=== PATIENT | male | born 1985 | race Hispanic/Latino ===

== ENCOUNTER 2021-11-17 06:36 | Inpatient (IN) | payer OTHER, SELFPAY ==
[2021-11-17] MEDS ORDERED: Boostrix 0.5 ML (Tdap) VIAL (>/=7 yrs of age) ONE (06:58)
[2021-11-17] MEDS ORDERED: Fentanyl 100 MCG/2 ML VIAL ONE (06:58)
[2021-11-17 07:30] LABS: Hemoglobin 14.8 g/dL (14.0-18.0); Mean Corpuscular HGB CONC 33.8 g/dL (32.0-36.0); Mean Corpuscular Hemoglobin 32.7 pg (27.0-31.0); Mean Corpuscular Volume 96.9 fL (78.0-98.0); Mean Platelet Volume 8.1 fL (7.4-10.4); Platelet Count 251 thou/uL (130-400); RBC Distribution Width 11.6 % (11.5-14.5); Red Blood Cell (RBC) Count 4.53 mill/uL (4.70-6.10); White Blood Cell (WBC) Count 19.8 thou/uL (4.8-10.8)
[2021-11-17 07:48] LABS: ALT (SGPT) 745 U/L (8-55); AST (SGOT) 726 U/L (5-34); Albumin 4.1 g/dL (3.5-5.0); Alkaline Phosphatase 112 U/L (40-110); Anion Gap 21 mmol/L (10-20); BUN (Urea Nitrogen) 13 mg/dL (8.9-20.6); Bilirubin, Total 0.6 mg/dL (0.2-1.2); Calc. Creatinine Clearance 0 mL/min (70-130); Calcium 8.8 mg/dL (7.8-10.44); Carbon Dioxide 20 mmol/L (22-29); Chloride 102 mmol/L (98-107); Estimated GFR 71; Globulin 3.1 g/dL (2.4-3.5); Glucose 179 mg/dL (70-105); Lipase 28 U/L (8-78); Protein, Total 7.2 g/dL (6.0-8.3); Sodium 139 mmol/L (136-145)
[2021-11-17 08:14] LABS: Band 7 % (5-11); Eosinophils 1 % (0-10); Lymphocytes 33 % (21-51); MDiff Complete? YES; Monocytes 5 % (0-10); Neutrophil 54 % (42-75); Platelet Morphology Comment Appears Adequate; RBC Morphology Normal
[2021-11-17] MEDS ORDERED: Ondansetron PF 4 MG/2 ML Vial ONE (08:49)
[2021-11-17] MEDS ORDERED: Morphine 4 MG/ML VIAL ONE (08:49)
[2021-11-17] MEDS ORDERED: Acetaminophen 500 MG TAB ONE (09:45)
[2021-11-17] MEDS ORDERED: traMADol HCl 50 MG TAB ONE (09:45)
[2021-11-17 10:29] LABS: Bacteria/HPF 2+ HPF (None Seen); Bilirubin Negative (Negative); Blood, Urine 3+ (Negative); Clarity Clear (Clear); Glucose, Urine (Dipstick) 100 mg/dL (Negative); Ketone, Urine Negative (Negative); Leukocyte Negative Leu/uL (Negative); Nitrite Negative (Negative); Protein, Urine (Dipstick) 300 mg/dL (Neg-Trace); Specific Gravity, Urine 1.049 (1.002-1.036); Squamous Epithelial 0-3 HPF (0-3); Urobilinogen Normal mg/dL (Less than 2); pH, Urine 7.5 (5.0-9.0)
[2021-11-17] MEDS ORDERED: Dextrose 5% in Water 1,000 ML IV PRN (11:38)
[2021-11-17] MEDS ORDERED: Ondansetron ODT 4 MG TAB PO PRN (11:38)
[2021-11-17] MEDS ORDERED: hydrALAZINE 20 MG/ML VIAL SLOW IVP PRN (11:38)
[2021-11-17] MEDS ORDERED: Dextrose 50% Abboject 50 ML SYRINGE SLOW IVP PRN (11:38)
[2021-11-17] MEDS ORDERED: Morphine 2 MG/ML VIAL SLOW IVP PRN (11:38)
[2021-11-17] MEDS ORDERED: TETANUS AND DIPHTHERIA TOX/PF 0.5 ML DISP.SYRIN IM ONE (11:38)
[2021-11-17] MEDS ORDERED: Ondansetron PF 4 MG/2 ML Vial IVP PRN (11:38)
[2021-11-17] MEDS ORDERED: Sodium Chloride 0.9% 1,000 ML IV SCH (11:45)
[2021-11-17 12:04] LABS: CK (CPK) 400 U/L (30-200); Magnesium 1.9 mg/dL (1.6-2.6); Phosphorus 5.2 mg/dL (2.3-4.7)
[2021-11-17] MEDS: Gabapentin 300 MG CAP PO SCH ×2 (14:14→21:51)
[2021-11-17] MEDS: Morphine 4 MG/ML VIAL SLOW IVP PRN ×2 (14:15→17:38)
[2021-11-17] MEDS: Acetaminophen 500 MG TAB PO SCH ×2 (14:16→21:53)
[2021-11-17] MEDS: traMADol HCl 50 MG TAB PO SCH ×2 (15:46→21:52)
[2021-11-17] MEDS ORDERED: Iopamidol-370 76% 500 ML 1 ML ONE (15:52)
[2021-11-17 18:22] VITALS: BMI 31.9
[2021-11-17] MEDS: Senokot S 8.6-50 MG TAB PO SCH (21:51)
[2021-11-17] MEDS: Bacitracin 1 PK TOP SCH (21:51)
[2021-11-17] MEDS: Famotidine 20 MG TAB PO SCH (21:52)
[2021-11-18] MEDS: Acetaminophen 500 MG TAB PO SCH ×2 (02:13→05:45)
[2021-11-18 05:37] LABS: #Eosinphils 0.1 thou/uL (0.0-0.7); #Monocytes 1.3 thou/uL (0.11-0.59); #Neutrophils 8.3 thou/uL (1.40-6.50); %Basophils 0.2 % (0.0-1.0); %Eosinophils 0.7 % (0.0-10.0); %Lymphocytes 16.9 % (21.0-51.0); %Neutrophils 71.2 % (42.0-75.0); Hemoglobin 12.8 g/dL (14.0-18.0); Mean Corpuscular HGB CONC 32.7 g/dL (32.0-36.0); Mean Corpuscular Hemoglobin 32.1 pg (27.0-31.0); Mean Corpuscular Volume 98.3 fL (78.0-98.0); Mean Platelet Volume 7.3 fL (7.4-10.4); Platelet Count 169 thou/uL (130-400); RBC Distribution Width 11.7 % (11.5-14.5); Red Blood Cell (RBC) Count 3.99 mill/uL (4.70-6.10); White Blood Cell (WBC) Count 11.7 thou/uL (4.8-10.8)
[2021-11-18] MEDS: traMADol HCl 50 MG TAB PO SCH ×4 (05:44→21:19)
[2021-11-18 06:03] LABS: Anion Gap 13 mmol/L (10-20); BUN (Urea Nitrogen) 12 mg/dL (8.9-20.6); CK (CPK) 3335 U/L (30-200); Calc. Creatinine Clearance 159 mL/min (70-130); Calcium 8.6 mg/dL (7.8-10.44); Carbon Dioxide 27 mmol/L (22-29); Chloride 101 mmol/L (98-107); Estimated GFR 114; Glucose 120 mg/dL (70-105); Magnesium 1.8 mg/dL (1.6-2.6); Potassium 4.9 mmol/L (3.5-5.1); Sodium 136 mmol/L (136-145)
[2021-11-18] MEDS ORDERED: Ibuprofen 200 MG TAB PO SCH (08:30)
[2021-11-18] MEDS: Famotidine 20 MG TAB PO SCH ×2 (09:04→21:13)
[2021-11-18] MEDS: Senokot S 8.6-50 MG TAB PO SCH ×2 (09:04→21:14)
[2021-11-18] MEDS: Enoxaparin Sodium 30 MG/0.3 ML SYRINGE SC SCH ×2 (09:08→21:32)
[2021-11-18] MEDS: Gabapentin 300 MG CAP PO SCH ×3 (09:08→21:13)
[2021-11-18] MEDS: Polyethylene Glycol 3350 17 GM Packet PO SCH (09:09)
[2021-11-18] MEDS: Silver Sulfadiazine 50 GM TUBE TOP SCH ×3 (14:51→21:15)
[2021-11-18] MEDS: Bacitracin 1 PK TOP SCH ×2 (14:52→21:15)
[2021-11-18] MEDS: Ketorolac Tromethamine 30 MG/ML VIAL IVP SCH ×2 (14:54→19:38)
[2021-11-18] MEDS: Sodium Chloride 0.9% 1,000 ML IV SCH ×3 (14:59→23:25)
[2021-11-18] MEDS ORDERED: Scopolamine 1.5 mg/72 hour Patch TD SCH (15:00)
[2021-11-19] MEDS: Ketorolac Tromethamine 30 MG/ML VIAL IVP SCH ×4 (00:16→17:33)
[2021-11-19] MEDS: traMADol HCl 50 MG TAB PO SCH ×4 (04:16→23:03)
[2021-11-19 05:35] LABS: #Eosinphils 0.2 thou/uL (0.0-0.7); #Lymphocytes 1.6 thou/uL (1.20-3.40); #Neutrophils 7.1 thou/uL (1.40-6.50); %Basophils 0.3 % (0.0-1.0); %Eosinophils 1.7 % (0.0-10.0); %Lymphocytes 15.8 % (21.0-51.0); %Monocytes 9.7 % (0.0-10.0); %Neutrophils 72.5 % (42.0-75.0); Hemoglobin 11.5 g/dL (14.0-18.0); Mean Corpuscular HGB CONC 33.2 g/dL (32.0-36.0); Mean Corpuscular Hemoglobin 32.5 pg (27.0-31.0); Mean Corpuscular Volume 97.9 fL (78.0-98.0); Mean Platelet Volume 7.6 fL (7.4-10.4); Platelet Count 136 thou/uL (130-400); RBC Distribution Width 11.6 % (11.5-14.5); Red Blood Cell (RBC) Count 3.53 mill/uL (4.70-6.10); White Blood Cell (WBC) Count 9.8 thou/uL (4.8-10.8)
[2021-11-19 06:02] LABS: ALT (SGPT) 393 U/L (8-55); AST (SGOT) 191 U/L (5-34); Albumin 3.2 g/dL (3.5-5.0); Alkaline Phosphatase 73 U/L (40-110); Anion Gap 11 mmol/L (10-20); BUN (Urea Nitrogen) 11 mg/dL (8.9-20.6); Bilirubin, Total 0.7 mg/dL (0.2-1.2); CK (CPK) 3536 U/L (30-200); Calc. Creatinine Clearance 161 mL/min (70-130); Calcium 8.4 mg/dL (7.8-10.44); Carbon Dioxide 27 mmol/L (22-29); Chloride 101 mmol/L (98-107); Estimated GFR 114; Globulin 2.6 g/dL (2.4-3.5); Glucose 112 mg/dL (70-105); Magnesium 1.6 mg/dL (1.6-2.6); Phosphorus 2.7 mg/dL (2.3-4.7); Potassium 4.4 mmol/L (3.5-5.1); Protein, Total 5.8 g/dL (6.0-8.3); Sodium 135 mmol/L (136-145)
[2021-11-19] MEDS: Sodium Chloride 0.9% 1,000 ML IV SCH ×2 (06:16→15:58)
[2021-11-19] MEDS: Polyethylene Glycol 3350 17 GM Packet PO SCH (09:00)
[2021-11-19] MEDS: Senokot S 8.6-50 MG TAB PO SCH ×2 (09:01→20:36)
[2021-11-19] MEDS: Bacitracin 1 PK TOP SCH ×2 (09:01→22:59)
[2021-11-19] MEDS: Enoxaparin Sodium 30 MG/0.3 ML SYRINGE SC SCH ×2 (09:01→20:36)
[2021-11-19] MEDS: Gabapentin 300 MG CAP PO SCH ×3 (09:03→20:35)
[2021-11-19] MEDS: Famotidine 20 MG TAB PO SCH ×2 (09:04→20:36)
[2021-11-19] MEDS: Silver Sulfadiazine 50 GM TUBE TOP SCH ×2 (09:04→22:59)
[2021-11-19] MEDS ORDERED: Acetaminophen/Codeine 30-300mg Tablet PO PRN (11:31)
[2021-11-19] MEDS ORDERED: Magnesium 2 GM/50 ML(in water) 4 GM in Premix Bag 1 BAG IVPB SCH (15:00)
[2021-11-20] MEDS: Sodium Chloride 0.9% 1,000 ML IV SCH ×2 (01:24→08:16)
[2021-11-20] MEDS: Ketorolac Tromethamine 30 MG/ML VIAL IVP SCH ×2 (01:30→06:42)
[2021-11-20] MEDS: traMADol HCl 50 MG TAB PO SCH ×3 (05:04→15:46)
[2021-11-20] MEDS: Polyethylene Glycol 3350 17 GM Packet PO SCH (08:15)
[2021-11-20] MEDS: Senokot S 8.6-50 MG TAB PO SCH (08:15)
[2021-11-20] MEDS: Gabapentin 300 MG CAP PO SCH ×2 (08:15→15:45)
[2021-11-20] MEDS: Silver Sulfadiazine 50 GM TUBE TOP SCH (08:15)
[2021-11-20] MEDS: Enoxaparin Sodium 30 MG/0.3 ML SYRINGE SC SCH (08:15)
[2021-11-20] MEDS: Famotidine 20 MG TAB PO SCH (08:15)
[2021-11-20] MEDS: Bacitracin 1 PK TOP SCH (08:15)
[2021-11-20 08:40] VITALS: TEMP 97.9
[2021-11-20] MEDS ORDERED: Ibuprofen 800 MG TAB PO PRN (12:23)
[2021-11-20 16:14] VITALS: BP 117/73
== END 2021-11-20 16:40 | disposition home or self-care (01) | DRG 964 ==
LOC: ERS 06:36 → SURG B 12:53
PROVIDERS: ADMIT Nurse Practitioner Acute Care; ATTEND Surgery
DX: S27.0XXA Traumatic pneumothorax, initial encounter (principal); J91.8 Pleural effusion in other conditions classified elsewhere; T79.6XXA Traumatic ischemia of muscle, initial encounter; S22.41XA Multiple fractures of ribs, right side, initial encounter for closed fracture; S32.029A Unspecified fracture of second lumbar vertebra, initial encounter for closed fracture; N17.9 Acute kidney failure, unspecified; Z20.822 Contact with and (suspected) exposure to COVID-19; H11.33 Conjunctival hemorrhage, bilateral; V68.5XXA Driver of heavy transport vehicle injured in noncollision transport accident in traffic accident, initial encounter
CPT/HCPCS: 36415; 70450; 70486; 71045; 71260; 72125; 72170; 74177; 80048; 80053; 81003; 81015; 82550; 83690; 83735; 84100; 85025; 85520; 86850; 86900; 86901; 87086; 90715; 93005; 94640; J1650; J1885; J2270; J2405; J3010; J3475; J7050; J7620; Q0162; Q9967; U0003; U0005

== ENCOUNTER 2021-11-29 12:55 | Outpatient (CLI) | payer OTHER | END 2021-11-29 12:56 | disposition home or self-care (01) | LOC: SCSRAD 12:55 | PROVIDERS: ATTEND Nurse Practitioner Family | DX: S27.0XXA Traumatic pneumothorax, initial encounter (principal); S22.41XD Multiple fractures of ribs, right side, subsequent encounter for fracture with routine healing | CPT/HCPCS: 71046 ==